=== PATIENT | female | born 1955 | race Caucasian/White ===

== ENCOUNTER 2021-05-03 11:27 | Emergency (ER) | payer OTHER ==
[2021-05-03 12:26] LABS: BASOPHIL 0.3 % (0-2); EOSINOPHIL 0.2 % (0-5); HCT 39.8 % (37.0-47.0); HGB 13.3 g/dl (12.5-16.0); LYMPHOCYTE 6.9 % (15-48); MCH 31.4 pg (25.0-31.0); MCHC 33.4 g/dL (32.0-36.0); MCV 93.9 fL (78.0-100.0); MONOCYTE 7.1 % (0-12); MPV 9.8 fL (6.0-9.5); NEUTROPHIL 85.1 % (41-80); NRBC 0; PLT 237 K/uL (150-400); RBC 4.24 M/uL (4.20-5.40); RDW 14.3 % (11.5-14.0); WBC 14.3 K/uL (4.0-10.5)
[2021-05-03 12:50] LABS: CREATININE 0.84 mg/dL (0.51-0.95)
[2021-05-03 12:51] LABS: ALBUMIN 4.1 g/dL (3.4-5.0); BILIRUBIN - TOTAL 0.3 mg/dL (0.2-1.0); C-REACTIVE PROTEIN 5.8 mg/dL (<=0.90); GLOBULIN (CALCULATION) 3.3 g/dL; POTASSIUM 4.3 mmol/L (3.5-5.1); TOTAL PROTEIN 7.4 g/dL (6.4-8.2)
[2021-05-03] MEDS ORDERED: DOXYCYCLINE MO100 MG PO (14:29)
== END 2021-05-03 13:15 | disposition home or self-care (01) ==
LOC: FER 11:27
PROVIDERS: Emergency Medicine
DX: L03.115 Cellulitis of right lower limb (principal); M71.21 Synovial cyst of popliteal space [Baker], right knee; I10 Essential (primary) hypertension; J44.9 Chronic obstructive pulmonary disease, unspecified; F17.210 Nicotine dependence, cigarettes, uncomplicated
CPT/HCPCS: 36415; 80053; 85025; 85379; 86140; 93971